=== PATIENT | female | born 1990 | race Hispanic/Latino ===

== ENCOUNTER 2017-08-14 09:09 | Inpatient (IN) | payer MEDICAID ==
[~2017-08-14] VITALS: Ht 165.1 cm; Wt 82.1 kg
[2017-08-14] MEDS ORDERED: LACTATED RINGERS 1000ML 1,000 ML IV PRN (10:59)
[2017-08-14] MEDS: OXYTOCIN-LR 20 UNITS/1000 ML 1,000 ML IV SCH ×2 (11:00→22:05)
[2017-08-14] MEDS ORDERED: OXYTOCIN 10 USP UNITS/ML 20 UNIT in LACTATED RINGERS 1000ML 1,000 ML IV SCH (11:00)
[2017-08-14] MEDS ORDERED: OXYTOCIN 10 USP UNITS/ML ONE ×3 (11:20→23:56)
[2017-08-14 11:25] LABS: HEMATOCRIT 34.2 % (36-48); MEAN CORPUSCULAR HEMOGLOBIN 30.3 pg (27.0-33.0); MEAN CORPUSCULAR HGB CONC 35.6 g/dL (32.0-36.0); MEAN CORPUSCULAR VOLUME 85.1 fL (79-99); PLATELET COUNT (AUTO) 171 K/uL (130-400); RED BLOOD CELL COUNT(AUTO) 4.02 MIL/uL (4.00-5.50); WHITE BLOOD COUNT (AUTO) 9.5 K/uL (4.8-10.8)
[2017-08-14] MEDS: AMPICILLIN 2GM+NS 100ML 100 ML IV SCH ×3 (11:31→23:15)
[2017-08-14] MEDS ORDERED: EPHEDRINE SULFATE 50 MG/ML AMPULE IVP PRN (18:30)
[2017-08-14] MEDS ORDERED: NALOXONE HCL 0.4 MG/1 ML ML IV PRN (18:30)
[2017-08-14] MEDS ORDERED: LACTATED RINGERS 500 ML 500 ML IV PRN (18:30)
[2017-08-14 19:00] VITALS: BP 120/68
[2017-08-14] MEDS ORDERED: CALDOLOR 800MG+NS 250ML 250 ML IV ONE (21:11)
[2017-08-14] MEDS ORDERED: CEFAZOLIN SODIUM 1 GM VIAL ONE (21:12)
[2017-08-14] MEDS ORDERED: LACTATED RINGERS 1000ML 1,000 ML IV ONE ×2 (21:29→23:56)
[2017-08-14] MEDS ORDERED: MIDAZOLAM HCL 1 MG/ML 2ML VIAL ONE (21:51)
[2017-08-14] MEDS ORDERED: ONDANSETRON HCL 4 MG/2 ML VIAL ONE (21:56)
[2017-08-14] MEDS ORDERED: OXYTOCIN 10 UNIT/1ML 10ML VIAL ONE (21:56)
[2017-08-14] MEDS ORDERED: OXYTOCIN 10 UNIT/1ML 10ML VIAL IJ ONE (22:05)
[2017-08-14] MEDS ORDERED: DURAMORPH PF1 MG/ML 10ML AMP IV ONE (22:05)
[2017-08-14] MEDS ORDERED: GLYCOPYRROLATE 0.2 MG/ML 5 ML VIAL ONE (22:25)
[2017-08-14] MEDS ORDERED: OXYTOCIN-LR 20 UNITS/1000 ML 1,000 ML IV PRN (22:29)
[2017-08-14] MEDS ORDERED: DEXTROSE 5 %-0.45 % NACL 1,000 ML IV PRN (22:30)
[2017-08-15] VITALS (7 sets, daily range): BP systolic 101–125; BP diastolic 54–75
[2017-08-15] MEDS: OXYTOCIN-LR 20 UNITS/1000 ML 1,000 ML IV SCH (00:15)
[2017-08-15] MEDS: ACETAMINOPHEN-CODEINE 300/30MG TAB PO PRN ×5 (00:32→23:34)
[2017-08-15] MEDS ORDERED: CEFAZOLIN SODIUM 1 GM VIAL ONE ×2 (05:21→13:13)
[2017-08-15] MEDS: CEFAZOLIN 2GM / 50 ML 50 ML IV SCH ×2 (05:30→13:20)
[2017-08-15] MEDS: CALDOLOR 800MG+NS 250ML 250 ML IV SCH ×2 (06:09→14:16)
[2017-08-15] MEDS ORDERED: PREN-94 PO (07:02)
[2017-08-15 08:22] LABS: HEMATOCRIT 26.5 % (36-48); MEAN CORPUSCULAR HEMOGLOBIN 28.6 pg (27.0-33.0); MEAN CORPUSCULAR HGB CONC 34.1 g/dL (32.0-36.0); MEAN CORPUSCULAR VOLUME 83.7 fL (79-99); PLATELET COUNT (AUTO) 139 K/uL (130-400); RED BLOOD CELL COUNT(AUTO) 3.17 MIL/uL (4.00-5.50); RED CELL DISTRIBUTION WIDTH 13.9 % (11.0-15.5); WHITE BLOOD COUNT (AUTO) 11.2 K/uL (4.8-10.8)
[2017-08-15 11:21] LABS: HEPATITIS Bs ANTIGEN SCREEN P Negative (Negative)
[2017-08-15] MEDS ORDERED: LANOLIN 30GM OINTMENT TP PRN (13:15)
[2017-08-15] MEDS ORDERED: ACETAMINOPHEN EXTRA STRENGTH 500 MG TABLET PO PRN (13:15)
[2017-08-15] MEDS: SIMETHICONE 80 MG TAB.CHEW PO PRN ×3 (13:23→21:27)
[2017-08-15] MEDS: DIPH,PERTUSS(ACELL),TET VAC/PF 0.5 ML VIAL IM SCH (13:24)
[2017-08-15] MEDS: DOCUSATE SODIUM 100 MG CAP PO SCH (21:27)
[2017-08-15] MEDS: BISACODYL 10 MG SUPP.RECT RC PRN (21:36)
[2017-08-15] MEDS: IBUPROFEN 800 MG TAB PO SCH (22:07)
[2017-08-16 03:22] VITALS: BP 94/61
[2017-08-16] MEDS: ACETAMINOPHEN-CODEINE 300/30MG TAB PO PRN ×4 (04:20→21:01)
[2017-08-16] MEDS: IBUPROFEN 800 MG TAB PO SCH ×3 (06:02→22:31)
[2017-08-16 07:37] VITALS: BP 105/52
[2017-08-16] MEDS: SIMETHICONE 80 MG TAB.CHEW PO PRN ×3 (09:03→22:08)
[2017-08-16] MEDS: DOCUSATE SODIUM 100 MG CAP PO SCH ×2 (09:03→21:00)
[2017-08-16 11:24] VITALS: BP 114/76
[2017-08-16] MEDS: DIPH,PERTUSS(ACELL),TET VAC/PF 0.5 ML VIAL IM SCH (13:15)
[2017-08-16 15:18] VITALS: BP 114/76
[2017-08-16 20:18] VITALS: BP 129/85
[2017-08-16] MEDS: BISACODYL 10 MG SUPP.RECT RC PRN (23:53)
[2017-08-17] VITALS: BP 97/55
[2017-08-17 04:05] VITALS: BP 116/67
[2017-08-17] MEDS: ACETAMINOPHEN-CODEINE 300/30MG TAB PO PRN ×2 (04:20→08:34)
[2017-08-17] MEDS: IBUPROFEN 800 MG TAB PO SCH (06:07)
[2017-08-17 07:26] VITALS: BP 106/54
[2017-08-17] MEDS: DOCUSATE SODIUM 100 MG CAP PO SCH (08:32)
[2017-08-17] MEDS: SIMETHICONE 80 MG TAB.CHEW PO PRN (08:33)
[2017-08-17 11:20] VITALS: BP 111/60
[2017-08-17] MEDS ORDERED: MO8B PO (11:22)
[2017-08-17] MEDS ORDERED: DOCU240C25 PO (11:22)
[2017-08-17] MEDS ORDERED: ACET1TAB12 PO (11:23)
== END 2017-08-17 12:05 | disposition home or self-care (01) | DRG 540 ==
LOC: LDH 09:09 → OBSVTOIN 09:09 → WSH 08-15 00:40
PROC: 3E0234Z Introduction of Serum, Toxoid and Vaccine into Muscle, Percutaneous Approach (ICD-10-PCS; 2017-08-14)
PROC: 10D00Z1 Extraction of Products of Conception, Low, Open Approach (ICD-10-PCS; principal; 2017-08-14 22:00)
DX: O42.90 Premature rupture of membranes, unspecified as to length of time between rupture and onset of labor, unspecified weeks of gestation (principal); D62 Acute posthemorrhagic anemia; O62.2 Other uterine inertia; O69.81X0 Labor and delivery complicated by cord around neck, without compression, not applicable or unspecified; O77.9 Labor and delivery complicated by fetal stress, unspecified; O99.02 Anemia complicating childbirth; Z37.0 Single live birth; Z3A.40 40 weeks gestation of pregnancy; Z23 Encounter for immunization
CPT/HCPCS: 36415; 59510; 85027; 86592; 86850; 86900; 86901; 87340; 90715; A4218; A4314; A4606; J0290; J0690; J1741; J2250; J2274; J2405; J2590; J3490; J7120

== ENCOUNTER 2018-01-01 22:08 | Emergency (ER) | payer MEDICAID, OTHER ==
[~2018-01-01 22:08] MED LIST: ACET1TAB12 PO; DOCU240C25 PO; MO8B PO; PREN-94 PO
[2018-01-01] MEDS ORDERED: ACETAMINOPHEN-CODEINE 300/30MG TAB ONE (22:39)
== END 2018-01-01 22:48 | disposition home or self-care (01) ==
LOC: EDH 22:08
DX: S42.91XA Fracture of right shoulder girdle, part unspecified, initial encounter for closed fracture (principal); X50.1XXA Overexertion from prolonged static or awkward postures, initial encounter; Y93.89 Activity, other specified; Y92.39 Other specified sports and athletic area as the place of occurrence of the external cause; Y99.8 Other external cause status
CPT/HCPCS: 73030; 96374